=== PATIENT | male | born 1935 | race Caucasian/White ===

== ENCOUNTER → 2017-01-21 | Outpatient (CLI) | payer BC, OTHER ==
[~2017-01-21] MED LIST: AMOX TR-K CLV1 EAC4 PO; ANTIVERT25 MG PO; ASPIRIN325 MG PO; AZOR 10/40 M1 TABLET PO; CALCITRIOL0.25 MCG PO; CHLORTHALIDONE25 MG PO; EAR DROPS15 ML BOTH EARS; FERROUS SULFAT325 MG PO; FISH OIL 1,2001 EAC4 PO; FISH OIL 1,2001 EAC5 PO; FLONASE16 G1 BOTH NARES; FLOVENT DISKUS1 DIS2 IH; K-TAB10 MEQ PO; LANSOPRAZOLE30 MG PO; LASIX40 MG PO; LIPITOR80 MG PO; LITE COAT ASPI325 M1 PO; MECLIZINE HCL25 MG PO; METOPROLOL SUCC50 MG PO; METOPROLOL TART50 MG PO; NEOMYCIN-POLYMY10 M1 BOTH EARS; NEOMYCIN-POLYMY10 ML BOTH EARS; ONGLYZA2.5 MG PO; PULMICORT FLE180 MCG IH; VITAMIN D10000 UNIT PO; VITAMIN D310000 UNI1 PO
== END | disposition home or self-care (01) ==
LOC: NUC 07:08
DX: Z01.810 Encounter for preprocedural cardiovascular examination (principal); R06.02 Shortness of breath; R94.39 Abnormal result of other cardiovascular function study
CPT/HCPCS: 78452; 93017; A9500; J2785

== ENCOUNTER 2017-01-23 22:09 | Inpatient (IN) | payer BC, OTHER ==
[~2017-01-23] VITALS: Ht 172.7 cm; Wt 102.3 kg
[~2017-01-23 22:09] MED LIST changes: -FERROUS SULFAT325 MG PO
[2017-01-24 06:28] VITALS: BP 130/63
[2017-01-24] MEDS ORDERED: FERROUS SULFAT325 MG PO (06:47)
[2017-01-24 06:54] LABS: POINT-OF-CARE METER ID UU14174212
[2017-01-24 09:38] LABS: POINT-OF-CARE METER ID UU13113675
[2017-01-24 10:33] VITALS: BP 107/54
[2017-01-24 11:33] LABS: POINT-OF-CARE METER ID UU13113712
[2017-01-24 15:56] VITALS: BP 114/53
[2017-01-24 19:59] VITALS: BP 120/60
[2017-01-25 00:20] VITALS: BP 126/60
[2017-01-25 04:29] VITALS: BP 122/68
[2017-01-25 07:28] LABS: ANION GAP 10 MEQ/L (2-14); CHLORIDE 101 MEQ/L (99-109); GFR ESTIMATE (CALCULATED) 48 mL/min/; GLUCOSE 136 mg/dL (70-99); POTASSIUM 4.8 MEQ/L (3.7-5.4); SAMPLE HEMOLYSIS CHECK 0; SAMPLE ICTERIC CHECK 0; SAMPLE LIPEMIA CHECK 0; SODIUM 137 MEQ/L (136-147); UREA NITROGEN (BUN) 29 mg/dL (9-23)
[2017-01-25 07:48] VITALS: BP 133/63
[2017-01-25 08:17] LABS: HEMATOCRIT 37.3 % (38.0-50.0); MCV 92.6 FL (86-99)
[2017-01-25 12:07] VITALS: BP 136/59
[2017-01-25 12:11] LABS: POINT-OF-CARE METER ID UU13113712
[2017-01-25 15:42] VITALS: BP 122/60
[2017-01-25 16:22] LABS: POINT-OF-CARE METER ID UU13113712
[2017-01-25 20:00] VITALS: BP 129/62
[2017-01-26] VITALS (8 sets, daily range): BP systolic 116–143; BP diastolic 55–64
[2017-01-26 08:34] LABS: HEMATOCRIT 34.1 % (38.0-50.0); MCV 89.7 FL (86-99)
[2017-01-26] MEDS ORDERED: DOCUSATE SODIU100 MG PO (09:29)
[2017-01-26] MEDS ORDERED: OXYCODONE HCL5 MG PO (09:29)
[2017-01-26] MEDS ORDERED: ELIQUIS2.5 MG PO (09:29)
[2017-01-27 04:30] VITALS: BP 123/62
[2017-01-27 08:04] VITALS: BP 137/66
[2017-01-27 12:15] VITALS: BP 118/60
== END 2017-01-27 15:59 | DRG 470 ==
LOC: ENRESERV 22:09 → 2SOUTH 01-24 05:17 → 3WEST 01-24 05:17 → 2SOUTH 01-24 08:48 → 3WEST 01-24 10:11 → 2SOUTH 01-24 11:14 → 3WEST 01-27 15:59
PROVIDERS: Orthopaedic Surgery; Physician Assistant
PROC: 0SRC0J9 Replacement of Right Knee Joint with Synthetic Substitute, Cemented, Open Approach (ICD-10-PCS; principal; 2017-01-24)
DX: M17.11 Unilateral primary osteoarthritis, right knee (principal); D62 Acute posthemorrhagic anemia; N18.1 Chronic kidney disease, stage 1; I12.9 Hypertensive chronic kidney disease with stage 1 through stage 4 chronic kidney disease, or unspecified chronic kidney disease; Z96.641 Presence of right artificial hip joint; Z96.652 Presence of left artificial knee joint; E11.22 Type 2 diabetes mellitus with diabetic chronic kidney disease; Z79.4 Long term (current) use of insulin
CPT/HCPCS: 71010; 78452; 80048; 82948; 85014; 85018; 93017; 94640; 94640 76; 94799; A9500; C1713; J0690; J1885; J2250; J2405; J2785; J7050; J7120; L1820; S0020

== ENCOUNTER 2017-02-14 19:24 | Inpatient (IN) | payer BC, OTHER ==
[~2017-02-14] VITALS: Ht 170.2 cm; Wt 101.2 kg
[~2017-02-14 19:24] MED LIST changes: +AZOR 5/40 MG1 TABLET PO; +DOCUSATE SODIU100 MG PO; +ELIQUIS2.5 MG PO; +FERROUS SULFAT325 MG PO; +OXYCODONE HCL5 MG PO
[2017-02-14 20:42] LABS: HEMATOCRIT 35.2 % (38.0-50.0); MCH 30.9 PG (29.0-34.0); MCHC 34.9 G/DL (30.0-36.0); MCV 88.4 FL (86-99); MEAN PLAT.VOLUME 11.3 uM^3 (9.0-12.4); PLATELET COUNT 315 K/uL (156-360); RBC DIS.WIDTH-CV 13.5 % (11.8-14.6); RBC DIS.WIDTH-SD 43.6 % (39-53); RED BLOOD COUNT 3.98 M/uL (4.00-5.50)
[2017-02-14 20:54] LABS: CHLORIDE 96 mEq/L (99-109); POTASSIUM 3.8 mEq/L (3.7-5.4); SODIUM 137 mEq/L (136-147)
[2017-02-14 20:55] LABS: AMYLASE 93 IU/L (1-118); MAGNESIUM 2.1 mg/dL (1.3-2.7)
[2017-02-14 20:56] LABS: GLUCOSE 173 mg/dL (70-99)
[2017-02-14 20:58] LABS: ANION GAP 17 MEQ/L (2-14); TOTAL BILIRUBIN 1.1 mg/dL (0.0-1.0)
[2017-02-14 21:00] LABS: ALKALINE PHOSPHATASE 111 IU/L (3-129); GFR ESTIMATE (CALCULATED) 20 mL/min/
[2017-02-14 21:01] LABS: UREA NITROGEN (BUN) 59 mg/dL (9-23)
[2017-02-14 21:02] LABS: TROP-I INTERPRETATION NEGATIVE; TROPONIN-I 0.04 ng/mL (0.0-0.30)
[2017-02-14 21:03] LABS: LIPASE 45 U/L (1.0-51.0)
[2017-02-14 21:34] LABS: C DIFF TOXIN POSITIVE (NEGATIVE); PROBE CHECK PASS
[2017-02-15] MEDS ORDERED: MILK OF MAGN PO (00:38)
[2017-02-15] MEDS ORDERED: DULCOLAX10 MG PR (00:41)
[2017-02-15] MEDS ORDERED: TRAMADOL HCL50 MG PO (00:45)
[2017-02-15] MEDS ORDERED: BENADRYL25 MG PO (00:49)
[2017-02-15] MEDS ORDERED: MIRALAX17 GM PO ×2 (00:54→09:36)
[2017-02-15] MEDS ORDERED: VITAMIN D31000 UNI2 PO (00:55)
[2017-02-15] MEDS ORDERED: VITAMIN B-12250 MCG PO (00:58)
[2017-02-15] MEDS ORDERED: CYANOCOBAL1000 MCG/2 IM (01:00)
[2017-02-15] MEDS ORDERED: POTASSIUM CHLO10 ME3 PO (01:02)
[2017-02-15 08:05] VITALS: BP 142/68
[2017-02-15] MEDS ORDERED: TRADJENTA5 MG PO (09:35)
[2017-02-15] MEDS ORDERED: OMEPRAZOLE20 MG PO (09:36)
[2017-02-15] MEDS ORDERED: OXYCODONE HCL10 MG PO (09:40)
[2017-02-15] MEDS ORDERED: PERCOCET 5/31 TABLET PO (09:41)
[2017-02-15] MEDS ORDERED: ROBITUSSIN COU237 M2 PO (09:42)
[2017-02-15] MEDS ORDERED: ONDANSETRON HCL4 MG PO (09:42)
[2017-02-15] MEDS ORDERED: TYLENOL REGULA325 MG PO (09:44)
[2017-02-15 11:33] VITALS: BP 142/68
[2017-02-15 15:23] LABS: UR CREATININE CONCENTRATION 22.7 MG/DL
[2017-02-15 15:31] LABS: ANION GAP 11 MEQ/L (2-14); CHLORIDE 100 MEQ/L (99-109); POTASSIUM 3.6 MEQ/L (3.7-5.4); SAMPLE HEMOLYSIS CHECK 0; SAMPLE ICTERIC CHECK 0; SAMPLE LIPEMIA CHECK 0; SODIUM 136 MEQ/L (136-147)
[2017-02-15 15:37] LABS: GFR ESTIMATE (CALCULATED) 32 mL/min/; GLUCOSE 131 mg/dL (70-99); UREA NITROGEN (BUN) 45 mg/dL (9-23)
[2017-02-15 16:49] VITALS: BP 136/72
[2017-02-15 16:49] LABS: TROP-I INTERPRETATION NEGATIVE; TROPONIN-I 0.06 ng/mL (0.0-0.30)
[2017-02-15 18:42] LABS: HEMATOCRIT 32.6 % (38.0-50.0); MCH 30.5 PG (29.0-34.0); MCHC 34.7 G/DL (30.0-36.0); MCV 88.1 FL (86-99); MEAN PLAT.VOLUME 11.3 uM^3 (9.0-12.4); PLATELET COUNT 266 K/uL (156-360); RBC DIS.WIDTH-CV 13.6 % (11.8-14.6); RBC DIS.WIDTH-SD 43.8 % (39-53); WHITE BLOOD COUNT 9.3 K/uL (4.1-10.2)
[2017-02-15 19:36] VITALS: BP 126/59
[2017-02-15 21:45] LABS: POINT-OF-CARE METER ID UU13113725
[2017-02-15 23:27] VITALS: BP 121/75
[2017-02-16 06:16] LABS: POINT-OF-CARE METER ID UU13113725
[2017-02-16 06:25] LABS: HEMATOCRIT 31.8 % (38.0-50.0); MCH 30.3 PG (29.0-34.0); MCHC 33.6 G/DL (30.0-36.0); MCV 90.1 FL (86-99); MEAN PLAT.VOLUME 11.4 uM^3 (9.0-12.4); PLATELET COUNT 228 K/uL (156-360); RBC DIS.WIDTH-CV 13.8 % (11.8-14.6); RBC DIS.WIDTH-SD 44.7 % (39-53); RED BLOOD COUNT 3.53 M/uL (4.00-5.50)
[2017-02-16 06:53] LABS: ANION GAP 9 MEQ/L (2-14); CHLORIDE 101 MEQ/L (99-109); GFR ESTIMATE (CALCULATED) 36 mL/min/; GLUCOSE 115 mg/dL (70-99); POTASSIUM 4.2 MEQ/L (3.7-5.4); SAMPLE HEMOLYSIS CHECK 0; SAMPLE ICTERIC CHECK 0; SAMPLE LIPEMIA CHECK 0; SODIUM 137 MEQ/L (136-147); UREA NITROGEN (BUN) 37 mg/dL (9-23)
[2017-02-16 07:57] LABS: INTACT PARATHYROID HORMONE 37 pg/mL (10-69)
[2017-02-16 08:42] VITALS: BP 124/70
[2017-02-16 11:28] LABS: POINT-OF-CARE METER ID UU13113774
[2017-02-16 15:55] VITALS: BP 127/66
[2017-02-16 16:40] LABS: POINT-OF-CARE METER ID UU13113774
[2017-02-16 19:24] VITALS: BP 107/57
[2017-02-16 21:29] LABS: POINT-OF-CARE METER ID UU13113725
[2017-02-16 23:07] VITALS: BP 124/62
[2017-02-17 03:41] VITALS: BP 127/61
[2017-02-17 06:00] LABS: POINT-OF-CARE METER ID UU13113725
[2017-02-17 06:52] LABS: BASOPHIL COUNT 0.1 K/uL (0-0.1); EOSINOPHIL (%) 2.7 % (0-5); EOSINOPHIL COUNT 0.3 K/uL (0-0.3); HEMATOCRIT 31.3 % (38.0-50.0); IMMATURE GRANULOCYTE (%) 0.8 % (0.0-0.7); IMMATURE GRANULOCYTE COUNT 0.1 K/uL; INSTRUMENT ABS NEUTROPHIL CT 6.8 K/uL; LYMPHOCYTE COUNT 1.2 K/uL (1.0-2.8); MCH 30.5 PG (29.0-34.0); MCHC 33.9 G/DL (30.0-36.0); MCV 89.9 FL (86-99); MEAN PLAT.VOLUME 12.2 uM^3 (9.0-12.4); MONOCYTE (%) 9.2 % (3-12); MONOCYTE COUNT 0.9 K/uL (0-0.8); NEUTROPHIL (%) 74.1 % (45-76); NEUTROPHIL COUNT 6.8 K/uL (1.8-6.4); PLATELET COUNT 218 K/uL (156-360); RBC DIS.WIDTH-CV 13.8 % (11.8-14.6); RBC DIS.WIDTH-SD 44.9 % (39-53); RED BLOOD COUNT 3.48 M/uL (4.00-5.50); WHITE BLOOD COUNT 9.2 K/uL (4.1-10.2)
[2017-02-17 07:26] LABS: ANION GAP 11 MEQ/L (2-14); CHLORIDE 100 MEQ/L (99-109); GFR ESTIMATE (CALCULATED) 44 mL/min/; GLUCOSE 116 mg/dL (70-99); POTASSIUM 3.9 MEQ/L (3.7-5.4); SAMPLE HEMOLYSIS CHECK 0; SAMPLE ICTERIC CHECK 0; SAMPLE LIPEMIA CHECK 0; SODIUM 136 MEQ/L (136-147); UREA NITROGEN (BUN) 29 mg/dL (9-23)
[2017-02-17 08:29] VITALS: BP 128/60
[2017-02-17] MEDS ORDERED: AMLODIPINE BESY10 MG PO (11:05)
[2017-02-17] MEDS ORDERED: POTASSIUM CHLO10 ME3 PO (11:06)
[2017-02-17] MEDS ORDERED: LASIX40 MG PO (11:07)
[2017-02-17] MEDS ORDERED: CALCITRIOL0.25 MCG PO (11:08)
[2017-02-17] MEDS ORDERED: VANCOCIN HCL125 MG PO (11:10)
[2017-02-17 11:43] LABS: POINT-OF-CARE METER ID UU13113725
== END 2017-02-17 14:22 | disposition home health service (06) | DRG 872 ==
LOC: EME → EDBD 19:24 → EME 19:24 → 5EAST 23:15 → EDOF 23:15 → ENRESERV 23:17 → 5EAST 02-15 01:20 → ENPENDDIS 02-17 → 5EAST 02-17 14:22
PROVIDERS: Emergency Medicine; Family Medicine; Internal Medicine; Nurse Practitioner Adult Health
DX: A41.9 Sepsis, unspecified organism (principal); A04.72 Enterocolitis due to Clostridium difficile, not specified as recurrent; N17.9 Acute kidney failure, unspecified; T50.2X5A Adverse effect of carbonic-anhydrase inhibitors, benzothiadiazides and other diuretics, initial encounter; E87.2 Acidosis; E86.0 Dehydration; K80.20 Calculus of gallbladder without cholecystitis without obstruction; E78.5 Hyperlipidemia, unspecified; K21.9 Gastro-esophageal reflux disease without esophagitis; I12.9 Hypertensive chronic kidney disease with stage 1 through stage 4 chronic kidney disease, or unspecified chronic kidney disease; E11.22 Type 2 diabetes mellitus with diabetic chronic kidney disease; N18.3 Chronic kidney disease, stage 3 (moderate); N25.81 Secondary hyperparathyroidism of renal origin; E55.9 Vitamin D deficiency, unspecified; E66.3 Overweight; Z96.641 Presence of right artificial hip joint; Z96.653 Presence of artificial knee joint, bilateral; Z68.34 Body mass index [BMI] 34.0-34.9, adult; Z79.01 Long term (current) use of anticoagulants; Z79.82 Long term (current) use of aspirin
CPT/HCPCS: 70450; 71010; 74176; 74177; 76705; 80053; 80069; 81003; 82150; 82436; 82570; 82948; 83605; 83690; 83735; 83970; 84156; 84300; 84484; 84540; 85025; 85027; 87040; 87493; 93005; 94640; 94640 76; 94760; 94799; 97530 GO; 99202; 99281; 99285; J0692; J1644; J1815; J2405; J7030; J7050; J7120

== ENCOUNTER 2017-06-03 08:27 | Observation (INO) | payer BC, OTHER ==
[~2017-06-03] VITALS: Ht 172.7 cm; Wt 99.2 kg
[~2017-06-03 08:27] MED LIST changes: +AMLODIPINE BESY10 MG PO; +BENADRYL25 MG PO; +CYANOCOBAL1000 MCG/2 IM; +DULCOLAX10 MG PR; +MILK OF MAGN PO; +MIRALAX17 GM PO; +OMEPRAZOLE20 MG PO; +ONDANSETRON HCL4 MG PO; +OXYCODONE HCL10 MG PO; +PERCOCET 5/31 TABLET PO; +POTASSIUM CHLO10 ME3 PO; +ROBITUSSIN COU237 M2 PO; +TRADJENTA5 MG PO; +TRAMADOL HCL50 MG PO; +TYLENOL REGULA325 MG PO; +VANCOCIN HCL125 MG PO; +VITAMIN B-12250 MCG PO; +VITAMIN D31000 UNI2 PO
[2017-06-03 08:55] LABS: BASOPHIL (%) 1.1 % (0-1); BASOPHIL COUNT 0.1 K/uL (0-0.1); EOSINOPHIL (%) 2.8 % (0-5); EOSINOPHIL COUNT 0.2 K/uL (0-0.3); HEMATOCRIT 42.1 % (38.0-50.0); HEMOGLOBIN 14.3 G/DL (12.5-16.6); IMMATURE GRANULOCYTE (%) 0.7 % (0.0-0.7); LYMPHOCYTE (%) 14.6 % (15-42); LYMPHOCYTE COUNT 0.9 K/uL (1.0-2.8); MCH 30.2 PG (29.0-34.0); MCV 88.8 FL (86-99); MONOCYTE (%) 5.4 % (3-12); MONOCYTE COUNT 0.3 K/uL (0-0.8); NEUTROPHIL (%) 75.4 % (45-76); NEUTROPHIL COUNT 4.6 K/uL (1.8-6.4); PLATELET COUNT 158 K/uL (156-360); RBC DIS.WIDTH-CV 13.7 % (11.8-14.6); RBC DIS.WIDTH-SD 44.5 % (39-53); RED BLOOD COUNT 4.74 M/uL (4.00-5.50); WHITE BLOOD COUNT 6.1 K/uL (4.1-10.2)
[2017-06-03 09:05] LABS: ALBUMIN 3.9 g/dL (3.2-4.8)
[2017-06-03 09:06] LABS: CHLORIDE 107 mEq/L (99-109); POTASSIUM 4.2 mEq/L (3.7-5.4); SODIUM 140 mEq/L (136-147)
[2017-06-03 09:08] LABS: GLUCOSE 161 mg/dL (70-99); TOTAL PROTEIN 6.5 g/dL (6.4-8.3)
[2017-06-03 09:11] LABS: ALKALINE PHOSPHATASE 93 IU/L (3-129)
[2017-06-03 09:12] LABS: CREATININE 1.4 mg/dL (0.6-1.3); GFR ESTIMATE (CALCULATED) 52 mL/min/ (58.99-99999)
[2017-06-03 09:13] LABS: AST (GOT) 23 IU/L (2-34); UREA NITROGEN (BUN) 27 mg/dL (9-23)
[2017-06-03 09:14] LABS: ALT (GPT) 15 IU/L (3-49)
[2017-06-03 09:15] LABS: TROP-I INTERPRETATION NEGATIVE; TROPONIN-I 0.01 ng/mL (0.0-0.30)
[2017-06-03 11:15] LABS: APPEARANCE CLEAR ((CLEAR)); BILIRUBIN NEGATIVE; BLOOD NEGATIVE; COLOR YELLOW ((YELLOW)); GLUCOSE (STRIP) NEGATIVE; KETONES NEGATIVE; LEUKOCYTES NEGATIVE; NITRITE NEGATIVE; PROTEIN (STRIP) 30; SPECIFIC GRAVITY 1.024 (1.000-1.030); UCUL ADDED? NO; UROBILINOGEN 0.2 MG/DL (0.2-1.0)
[2017-06-03] MEDS ORDERED: LASIX40 MG PO (15:31)
[2017-06-03] MEDS ORDERED: PREVACID30 MG PO (15:32)
[2017-06-03] MEDS ORDERED: ONGLYZA2.5 MG PO (15:32)
[2017-06-03 15:33] LABS: TROP-I INTERPRETATION NEGATIVE; TROPONIN-I 0.02 ng/mL (0.0-0.30)
[2017-06-03] MEDS ORDERED: VITAMIN D32000 UNI1 PO (15:36)
[2017-06-03] MEDS ORDERED: ALEVE220 MG PO (15:39)
[2017-06-03] MEDS ORDERED: KLOR-CON M2020 MEQ PO (15:41)
[2017-06-03 20:34] VITALS: BP 151/65
[2017-06-03 21:14] LABS: TROP-I INTERPRETATION NEGATIVE; TROPONIN-I 0.02 ng/mL (0.0-0.30)
[2017-06-03 23:47] VITALS: BP 147/74
[2017-06-04 03:28] VITALS: BP 122/73
[2017-06-04 07:43] VITALS: BP 143/73
[2017-06-04 12:14] VITALS: BP 122/62
[2017-06-04 12:15] VITALS: BP 139/70
[2017-06-04 12:17] VITALS: BP 141/83
[2017-06-04] MEDS ORDERED: ANTIVERT25 MG PO (12:35)
[2017-06-04 15:00] VITALS: BP 144/69
== END 2017-06-04 16:25 | disposition home or self-care (01) ==
LOC: EME 08:27 → EDOF 12:32 → ENRESERV 12:52 → 5WEST 20:17
PROVIDERS: Emergency Medicine; Internal Medicine
DX: R42 Dizziness and giddiness (principal); R51 Headache; I12.9 Hypertensive chronic kidney disease with stage 1 through stage 4 chronic kidney disease, or unspecified chronic kidney disease; E11.22 Type 2 diabetes mellitus with diabetic chronic kidney disease; N18.9 Chronic kidney disease, unspecified; K21.9 Gastro-esophageal reflux disease without esophagitis; E78.5 Hyperlipidemia, unspecified; J32.0 Chronic maxillary sinusitis; Z82.49 Family history of ischemic heart disease and other diseases of the circulatory system; Z79.4 Long term (current) use of insulin; Z79.82 Long term (current) use of aspirin
CPT/HCPCS: 70450; 70551; 71046; 80053; 81003; 82948; 84484; 85025; 93005; 93880; 94640; 94640 76; 94799; 99281; 99285; G0378; G8978 GP CJ; G8979 GP CH; G8980 CJ; J1650; J2405

== ENCOUNTER 2017-06-16 14:31 | Inpatient (IN) | payer BC, OTHER ==
[~2017-06-16] VITALS: Ht 172.7 cm; Wt 96.6 kg
[~2017-06-16 14:31] MED LIST changes: +ALEVE220 MG PO; +KLOR-CON M2020 MEQ PO; +PREVACID30 MG PO; +VITAMIN D32000 UNI1 PO
[2017-06-16 15:28] LABS: HEMATOCRIT 42.8 % (38.0-50.0); HEMOGLOBIN 14.5 G/DL (12.5-16.6); MCH 30.3 PG (29.0-34.0); MCHC 33.9 G/DL (30.0-36.0); MCV 89.4 FL (86-99); PLATELET COUNT 162 K/uL (156-360); RBC DIS.WIDTH-CV 13.8 % (11.8-14.6); RED BLOOD COUNT 4.79 M/uL (4.00-5.50)
[2017-06-16 15:39] LABS: CHLORIDE 108 mEq/L (99-109); POTASSIUM 4.1 mEq/L (3.7-5.4); SODIUM 141 mEq/L (136-147)
[2017-06-16 15:41] LABS: GLUCOSE 114 mg/dL (70-99)
[2017-06-16 15:44] LABS: CREATININE 1.4 mg/dL (0.6-1.3); GFR ESTIMATE (CALCULATED) 52 mL/min/ (58.99-99999)
[2017-06-16 15:45] LABS: UREA NITROGEN (BUN) 24 mg/dL (9-23)
[2017-06-16] MEDS ORDERED: LASIX20 MG PO (18:24)
[2017-06-16] MEDS ORDERED: ANTIVERT25 MG PO (18:26)
[2017-06-16] MEDS ORDERED: OCEAN NASAL 0.645 ML BOTH NARES (18:27)
[2017-06-16] MEDS ORDERED: PROAIR HFA8.5 GM IH (18:29)
[2017-06-16] MEDS ORDERED: NORVASC2.5 MG PO (18:29)
[2017-06-16] MEDS ORDERED: ALLEGRA ALLERG180 MG PO (18:29)
[2017-06-16] MEDS ORDERED: ARTIFICIAL TEAR1510 BOTH EYES (18:30)
[2017-06-16] MEDS ORDERED: ROCALTROL0.25 MCG PO (18:30)
[2017-06-16] MEDS ORDERED: PROBIOTIC1 EAC1 PO (18:30)
[2017-06-16 21:51] VITALS: BP 172/79
[2017-06-17] VITALS: BP 138/65
[2017-06-17 03:41] VITALS: BP 143/67
[2017-06-17 07:33] VITALS: BP 140/65
[2017-06-17 11:37] VITALS: BP 162/76
[2017-06-17 12:25] LABS: HDL CHOLESTEROL 34 MG/DL (Desirable>=40); LDL CHOLESTEROL 48 mg/dL (Desirable<100); NON-HDL CHOLESTEROL 71 mg/dL (Desirable<160); TOTAL CHOLESTEROL 105 mg/dL (Desirable<200); TRIGLYCERIDES 117 MG/DL (Normal: <150)
[2017-06-17 15:46] VITALS: BP 157/82
== END 2017-06-17 18:05 | disposition home or self-care (01) | DRG 149 ==
LOC: EME 14:31 → 5SOUTH 18:11 → EDOF 18:11 → ENRESERV 18:28 → 5SOUTH 20:59
PROVIDERS: Emergency Medicine; Hospitalist; Student in an Organized Health Care Education/Training Program
DX: R42 Dizziness and giddiness (principal); E66.9 Obesity, unspecified; E53.8 Deficiency of other specified B group vitamins; N18.3 Chronic kidney disease, stage 3 (moderate); E78.5 Hyperlipidemia, unspecified; I12.9 Hypertensive chronic kidney disease with stage 1 through stage 4 chronic kidney disease, or unspecified chronic kidney disease; K21.9 Gastro-esophageal reflux disease without esophagitis; E11.22 Type 2 diabetes mellitus with diabetic chronic kidney disease; Z96.651 Presence of right artificial knee joint; Z82.49 Family history of ischemic heart disease and other diseases of the circulatory system; Z80.1 Family history of malignant neoplasm of trachea, bronchus and lung; Z68.32 Body mass index [BMI] 32.0-32.9, adult; Z80.52 Family history of malignant neoplasm of bladder
CPT/HCPCS: 70450; 70551; 80048; 80061; 82607; 82948; 83036; 85027; 93005; 94640; 94640 76; 95992 GP; 97161 GP; 99202; 99281; 99285; G8981 GP; G8982 GP; J1644; J2060; J7030

== ENCOUNTER 2017-09-05 11:28 | Observation (INO) | payer BC, OTHER ==
[~2017-09-05] VITALS: Ht 170.2 cm; Wt 101.8 kg
[~2017-09-05 11:28] MED LIST changes: +ALLEGRA ALLERG180 MG PO; +ARTIFICIAL TEAR1510 BOTH EYES; +LASIX20 MG PO; +NORVASC2.5 MG PO; +OCEAN NASAL 0.645 ML BOTH NARES; +PROAIR HFA8.5 GM IH; +PROBIOTIC1 EAC1 PO; +ROCALTROL0.25 MCG PO
[2017-09-05 12:27] LABS: HEMATOCRIT 41.8 % (38.0-50.0); HEMOGLOBIN 14.5 G/DL (12.5-16.6); MCH 31.1 PG (29.0-34.0); MCHC 34.7 G/DL (30.0-36.0); MCV 89.7 FL (86-99); RBC DIS.WIDTH-CV 14.2 % (11.8-14.6); RBC DIS.WIDTH-SD 46.5 % (39-53); RED BLOOD COUNT 4.66 M/uL (4.00-5.50); WHITE BLOOD COUNT 8.9 K/uL (4.1-10.2)
[2017-09-05 12:36] LABS: CHLORIDE 107 mEq/L (99-109); POTASSIUM 4.6 mEq/L (3.7-5.4); SODIUM 141 mEq/L (136-147)
[2017-09-05 12:38] LABS: GLUCOSE 116 mg/dL (70-99)
[2017-09-05 12:42] LABS: CREATININE 1.3 mg/dL (0.6-1.3); GFR ESTIMATE (CALCULATED) 56 mL/min/ (58.99-99999)
[2017-09-05 12:43] LABS: UREA NITROGEN (BUN) 24 mg/dL (9-23)
[2017-09-05 12:50] LABS: TROP-I INTERPRETATION NEGATIVE; TROPONIN-I 0.02 ng/mL (0.0-0.30)
[2017-09-05 13:15] LABS: PLAT.SUFFICIENCY ADEQUATE; PLATELET COUNT 162 K/uL (156-360)
[2017-09-05] MEDS ORDERED: RETAINE HPMC 0.10 ML BOTH EYES (16:47)
[2017-09-05 17:31] VITALS: BP 190/88
[2017-09-05 20:06] VITALS: BP 158/85
[2017-09-05 20:56] LABS: APPEARANCE CLEAR ((CLEAR)); BILIRUBIN NEGATIVE; BLOOD MODERATE; COLOR YELLOW ((YELLOW)); GLUCOSE (STRIP) NEGATIVE; KETONES NEGATIVE; LEUKOCYTES NEGATIVE; NITRITE NEGATIVE; PROTEIN (STRIP) NEGATIVE; SPECIFIC GRAVITY 1.011 (1.000-1.030); UROBILINOGEN 0.2 MG/DL (0.2-1.0)
[2017-09-05 21:14] LABS: BACTERIA NONE SEEN /HPF; EPITHELIAL CELLS RARE /HPF; MUCUS TRACE /LPF; RED BLOOD CELLS 20-30 /HPF (0-5); UCUL ADDED? NO; WHITE BLOOD CELLS 0-5 /HPF (0-5)
[2017-09-06 00:28] VITALS: BP 155/86
[2017-09-06 03:58] VITALS: BP 146/74
[2017-09-06 05:35] LABS: HEMATOCRIT 39.1 % (38.0-50.0); HEMOGLOBIN 13.1 G/DL (12.5-16.6); MCH 30.5 PG (29.0-34.0); MCHC 33.5 G/DL (30.0-36.0); MCV 90.9 FL (86-99); PLATELET COUNT 159 K/uL (156-360); RBC DIS.WIDTH-CV 14.4 % (11.8-14.6); RBC DIS.WIDTH-SD 47.9 % (39-53); WHITE BLOOD COUNT 7.6 K/uL (4.1-10.2)
[2017-09-06 05:58] LABS: CHLORIDE 105 MEQ/L (99-109); CREATININE 1.3 MG/DL (0.6-1.3); GFR ESTIMATE (CALCULATED) 56 mL/min/ (58.99-99999); GLUCOSE 113 mg/dL (70-99); POTASSIUM 4.7 MEQ/L (3.7-5.4); SODIUM 138 MEQ/L (136-147); UREA NITROGEN (BUN) 21 mg/dL (9-23)
[2017-09-06 08:00] VITALS: BP 162/89
[2017-09-06 11:47] VITALS: BP 146/77
[2017-09-06] MEDS ORDERED: NORVASC5 MG PO (11:47)
[2017-09-06] MEDS ORDERED: METOPROLOL SUCC25 MG PO (11:48)
== END 2017-09-06 14:20 | disposition home or self-care (01) ==
LOC: EME 11:28 → 4SOUTH 16:32 → EDOF 16:32 → ENRESERV 16:33 → 4SOUTH 17:16
PROVIDERS: Emergency Medicine; Hospitalist; Physician Assistant
DX: R42 Dizziness and giddiness (principal); I12.9 Hypertensive chronic kidney disease with stage 1 through stage 4 chronic kidney disease, or unspecified chronic kidney disease; E11.22 Type 2 diabetes mellitus with diabetic chronic kidney disease; N18.3 Chronic kidney disease, stage 3 (moderate); E78.5 Hyperlipidemia, unspecified; R00.1 Bradycardia, unspecified; H92.01 Otalgia, right ear; H91.93 Unspecified hearing loss, bilateral; K21.9 Gastro-esophageal reflux disease without esophagitis; M19.90 Unspecified osteoarthritis, unspecified site; Z86.19 Personal history of other infectious and parasitic diseases; Z82.49 Family history of ischemic heart disease and other diseases of the circulatory system; Z80.52 Family history of malignant neoplasm of bladder; Z80.1 Family history of malignant neoplasm of trachea, bronchus and lung; Z79.82 Long term (current) use of aspirin; Z88.8 Allergy status to other drugs, medicaments and biological substances
CPT/HCPCS: 71045; 80048; 81003; 82948; 84484; 85027; 93005; 94640; 94640 76; 97530 GP; 99202; 99281; 99285; G0378; G8978 GP CK; G8979 GP CI; G8980 GP CH; G8987 GO CH; G8988 GO CH; G8989 GO CH; J1644

== ENCOUNTER 2017-09-30 10:59 | Emergency (ER) | payer BC, OTHER ==
[~2017-09-30] VITALS: Ht 170.2 cm; Wt 104.1 kg
[~2017-09-30 10:59] MED LIST changes: +METOPROLOL SUCC25 MG PO; +NORVASC5 MG PO; +RETAINE HPMC 0.10 ML BOTH EYES
[2017-09-30 12:27] LABS: BASOPHIL COUNT 0.1 K/uL (0-0.1); EOSINOPHIL (%) 1.5 % (0-5); EOSINOPHIL COUNT 0.1 K/uL (0-0.3); HEMATOCRIT 42.6 % (38.0-50.0); HEMOGLOBIN 14.8 G/DL (12.5-16.6); IMMATURE GRANULOCYTE (%) 1.1 % (0.0-0.7); LYMPHOCYTE (%) 15.5 % (15-42); LYMPHOCYTE COUNT 1.3 K/uL (1.0-2.8); MCH 31.2 PG (29.0-34.0); MCHC 34.7 G/DL (30.0-36.0); MCV 89.9 FL (86-99); MONOCYTE (%) 4.9 % (3-12); MONOCYTE COUNT 0.4 K/uL (0-0.8); NEUTROPHIL COUNT 6.3 K/uL (1.8-6.4); PLATELET COUNT 191 K/uL (156-360); RBC DIS.WIDTH-CV 13.7 % (11.8-14.6); RED BLOOD COUNT 4.74 M/uL (4.00-5.50); WHITE BLOOD COUNT 8.2 K/uL (4.1-10.2)
[2017-09-30 12:33] LABS: ALBUMIN 4.4 g/dL (3.2-4.8); CHLORIDE 101 mEq/L (99-109); POTASSIUM 4.5 mEq/L (3.7-5.4); SODIUM 136 mEq/L (136-147)
[2017-09-30 12:36] LABS: GLUCOSE 137 mg/dL (70-99); TOTAL PROTEIN 7.4 g/dL (6.4-8.3)
[2017-09-30 12:38] LABS: TOTAL BILIRUBIN 1.2 mg/dL (0.0-1.0)
[2017-09-30 12:39] LABS: ALKALINE PHOSPHATASE 104 IU/L (3-129); CREATININE 1.5 mg/dL (0.6-1.3); GFR ESTIMATE (CALCULATED) 48 mL/min/ (58.99-99999)
[2017-09-30 12:40] LABS: UREA NITROGEN (BUN) 24 mg/dL (9-23)
[2017-09-30 12:41] LABS: AST (GOT) 23 IU/L (2-34)
[2017-09-30 12:42] LABS: ALT (GPT) 17 IU/L (3-49)
[2017-09-30 12:47] LABS: TROP-I INTERPRETATION NEGATIVE; TROPONIN-I 0.02 ng/mL (0.0-0.30)
[2017-09-30] MEDS ORDERED: VALIUM2 MG PO (15:22)
[2017-09-30 15:50] VITALS: BP 124/71
== END 2017-09-30 15:50 | disposition home or self-care (01) ==
LOC: EME 10:59
PROVIDERS: Emergency Medicine
DX: R42 Dizziness and giddiness (principal); R51 Headache; I10 Essential (primary) hypertension; E11.9 Type 2 diabetes mellitus without complications; Z79.84 Long term (current) use of oral hypoglycemic drugs; E78.5 Hyperlipidemia, unspecified; K21.9 Gastro-esophageal reflux disease without esophagitis; Z79.82 Long term (current) use of aspirin; Z88.8 Allergy status to other drugs, medicaments and biological substances
CPT/HCPCS: 70450; 80053; 84484; 85025; 93005; 99281; 99285; J0780; J7040

== ENCOUNTER 2017-10-06 15:09 | Emergency (ER) | payer BC, OTHER ==
[~2017-10-06] VITALS: Ht 170.2 cm; Wt 103.5 kg
[~2017-10-06 15:09] MED LIST changes: +VALIUM2 MG PO
[2017-10-06 18:44] VITALS: BP 141/75
== END 2017-10-06 18:45 | disposition home or self-care (01) ==
LOC: EME 15:09
DX: R42 Dizziness and giddiness (principal); E11.9 Type 2 diabetes mellitus without complications; I10 Essential (primary) hypertension; E78.5 Hyperlipidemia, unspecified; K21.9 Gastro-esophageal reflux disease without esophagitis; Z79.84 Long term (current) use of oral hypoglycemic drugs; Z79.82 Long term (current) use of aspirin; Z88.8 Allergy status to other drugs, medicaments and biological substances
CPT/HCPCS: 99281; 99285; J0780; J7040